=== PATIENT | male | born 1995 | race Native Hawaiian/Other Pacific Islander ===

== ENCOUNTER 2020-12-26 15:07 | Emergency (ER) | payer OTHER ==
[~2020-12-26] VITALS: Ht 165.1 cm; Wt 72.6 kg
[2020-12-26 15:10] VITALS: BP 158/95; TEMP 99
== END 2020-12-26 18:39 | disposition home or self-care (01) ==
LOC: ED 15:07
DX: S70.12XA Contusion of left thigh, initial encounter (principal); M79.18 Myalgia, other site; V80.010A Animal-rider injured by fall from or being thrown from horse in noncollision accident, initial encounter; Y92.89 Other specified places as the place of occurrence of the external cause
CPT/HCPCS: 96372; 99284; J1885

== ENCOUNTER 2022-06-05 06:37 | Emergency (ER) | payer OTHER ==
[~2022-06-05] VITALS: Ht 165.1 cm; Wt 72.6 kg
[2022-06-05] MEDS ORDERED: AMOX875T8 PO (07:19)
[2022-06-05 08:00] VITALS: BP 112/70; TEMP 98
[2022-06-05] MEDS ORDERED: TAMIFLU75 MG PO (08:04)
== END 2022-06-05 08:08 | disposition home or self-care (01) ==
LOC: ED 06:37
DX: J20.9 Acute bronchitis, unspecified (principal); J10.1 Influenza due to other identified influenza virus with other respiratory manifestations; F17.210 Nicotine dependence, cigarettes, uncomplicated; Z20.822 Contact with and (suspected) exposure to COVID-19
CPT/HCPCS: 87502; 87635; 87651; 99283; U0003

== ENCOUNTER 2023-03-27 11:24 | Emergency (ER) | payer OTHER ==
[~2023-03-27] VITALS: Ht 165.1 cm; Wt 68.0 kg
[~2023-03-27 11:24] MED LIST: AMOX875T8 PO; TAMIFLU75 MG PO
[2023-03-27 11:25] VITALS: TEMP 97.9
[2023-03-27 11:52] LABS: PLATELET COUNT 262 K/uL (142-355)
[2023-03-27 12:00] LABS: POTASSIUM 3.9 mmol/L (3.6-5.2)
[2023-03-27 14:25] VITALS: BP 133/58
== END 2023-03-27 14:29 | disposition home or self-care (01) ==
LOC: ED 11:24
PROVIDERS: Family Medicine
DX: S76.811A Strain of other specified muscles, fascia and tendons at thigh level, right thigh, initial encounter (principal); R10.9 Unspecified abdominal pain
CPT/HCPCS: 36415; 80053; 81002; 83690; 85027; 96374; 99284; J1885